=== PATIENT | male | born 1995 | race Two or more races ===

== ENCOUNTER → 2016-06-24 | Outpatient (REF) | payer OTHER ==
[~2016-06-24] MED LIST: PRED10PA2 PO
== END ==
LOC: M SFHCLERA 12:49
PROVIDERS: ATTEND Nurse Practitioner Family
DX: J02.9 Acute pharyngitis, unspecified (principal)

== ENCOUNTER 2016-06-27 08:46 | Emergency (ER) | payer MEDICAID, OTHER, SELFPAY ==
[~2016-06-27] VITALS: Ht 185.4 cm; Wt 77.1 kg
[2016-06-27] MEDS ORDERED: PRED10PA2 PO (09:03)
[2016-06-27] MEDS ORDERED: cefTRIAXone SOD 1 GM VIAL (J0696) IM ONE (09:15)
[2016-06-27] MEDS ORDERED: KETOROLAC 60 MG/2 ML VIAL (J1885) IM ONE (09:15)
[2016-06-27] MEDS ORDERED: ALBUTEROL 90 MCG/ACT 8GM HFA INHALER INH ONE (09:15)
[2016-06-27 10:05] VITALS: BP 116/69
== END 2016-06-27 10:08 | disposition home or self-care (01) ==
LOC: M ED 09:39
DX: J45.901 Unspecified asthma with (acute) exacerbation (principal); J20.9 Acute bronchitis, unspecified; J06.9 Acute upper respiratory infection, unspecified; B34.9 Viral infection, unspecified; Z79.52 Long term (current) use of systemic steroids
CPT/HCPCS: 96372; 99282; J0696; J1885

== ENCOUNTER 2016-11-19 10:19 | Emergency (ER) | payer OTHER, SELFPAY ==
[~2016-11-19] VITALS: Ht 188 cm; Wt 84.1 kg
[2016-11-19 10:27] VITALS: BP 117/79
[2016-11-19] MEDS ORDERED: ALBU83IN INH (10:32)
[2016-11-19] MEDS ORDERED: IBUP80TA PO (11:10)
[2016-11-19] MEDS ORDERED: CLIN150C14 PO (11:10)
[2016-11-19] MEDS ORDERED: CLINDAMYCIN 150 MG CAP PO ONE (11:15)
[2016-11-19] MEDS ORDERED: IBUPROFEN 800 MG TAB PO ONE (11:15)
== END 2016-11-19 11:17 | disposition home or self-care (01) ==
LOC: M ED 10:19
DX: K02.9 Dental caries, unspecified (principal); K04.7 Periapical abscess without sinus; S02.5XXA Fracture of tooth (traumatic), initial encounter for closed fracture; X58.XXXA Exposure to other specified factors, initial encounter; Y92.89 Other specified places as the place of occurrence of the external cause; Y93.89 Activity, other specified; Y99.8 Other external cause status; J45.909 Unspecified asthma, uncomplicated